=== PATIENT | female | born 1960 | race Hispanic/Latino ===

== ENCOUNTER 2020-05-26 20:13 | Emergency (ER) | payer MEDICARE, OTHER ==
[~2020-05-26] VITALS: Ht 154.9 cm; Wt 60.8 kg
[2020-05-26] MEDS ORDERED: ONDANSETRON HCL INJ 2MG/ML 2ML 2 MG/ML VIAL IV STA (20:20)
[2020-05-26] MEDS ORDERED: MORPHINE SULFATE INJ 4 MG/ML INJ 1ML IV STA (20:20)
--- NOTE | 2020-05-26 20:22 | Emergency Department Note ---
History of Present Illnes History of Present Illness Chief Complaint: chest pain History of Present Illness This is a 59 year old female brought by EMS for evaluation of non radiating CP . Historian: Patient, Medical Record Arrival Mode: [place] [employer] Paralegal Required: No Onset (how long ago): day(s) (1) Radiation: Reports non-radiation Severity: moderate Onset quality: gradual Duration (how long): day(s) (1) Timing of current episode: constant Progression: worsening Relieving factors: none Exacerbating factors: none Associated symptoms: Reports chest pain, Reports nausea/vomiting, Reports shortness of breath Treatments prior to arrival: none Past Medical/Family History Physician Review I have reviewed the patient's past medical and family history. Any updates have been documented here. Past Medical History Recent Fever: No Clinical Suspicion of Infectio: No New/Unexplained Change in Ment: No Past Medical History: COPD, Other Mental Illness Other Medical History: arthritis fibromyalgia ibs Past Surgical History: None Social History Smoking Cessation: Never Smoker Alcohol Use: None Any Illegal Drug Use: No Other Last Tetanus: u Review of Systems Review of Systems Constitutional: Reports no symptoms EENTM: Reports no symptoms Cardiovascular: Reports chest pain Respiratory: Reports dyspnea Gastrointestinal: Reports nausea Genitourinary: Reports no symptoms Musculoskeletal: Reports no symptoms Integumentary: Reports no symptoms Neurological: Reports no symptoms Psychological: Reports no symptoms Endocrine: Reports no symptoms Hematological/Lymphatic: Reports no symptoms Physical Exam Related Data Allergies: Coded Allergies: celecoxib (Verified Allergy, Intermediate, 05/26/20) Triage Vital Signs Vital Signs Date Time Temp Pulse Resp B/P (MAP) Pulse Ox O2 Delivery O2 Flow Rate FiO2 05/26/20 20:13 99.3 83 20 139/72 100 Room Air Vital signs reviewed: Yes Physical Exam CONSTITUTIONAL Constitutional: Present distressed, Present ill appearing HENT HENT: Present normocephalic, Present atraumatic, Present oropharynx clear/moist, Present nose normal HENT L/R: Present left ext ear normal, Present right ext ear normal EYES Eyes: Reports PERRL, Reports conjunctivae normal NECK Neck: Present ROM normal PULMONARY Pulmonary: Present other (tachypnea) CARDIOVASCULAR Cardiovascular: Present regular rhythm, Present heart sounds normal, Present capillary refill normal, Present normal rate GASTROINTESTINAL Abdominal: Present soft, Present nontender, Present bowel sounds normal GENITOURINARY Genitourinary: Present exam deferred SKIN Skin: Present warm, Present dry MUSCULOSKELETAL Musculoskeletal: Present ROM normal NEUROLOGICAL Neurological: Present alert, Present oriented x 3, Present no gross motor or sensory deficits PSYCHOLOGICAL Psychological: Present mood/affect normal, Present judgement normal Results Laboratory Result Diagram: 05/26/20203505/26/202035 Lab results reviewed: Yes Imaging Imaging results reviewed: Yes Impressions [place] [id number] Patient Name: MADISON ARREOLA MR #: [id number] : 1960 Age/Sex: 59/F Req #: [id number] Adm Physician: Ordered by: RONI SHER DO Report #: [id number] Location: ER Room/Bed: Procedure: [id number] CT/CT CHEST W Exam Date: 05/26/20 Exam Time: 2223 REPORT STATUS: Signed EXAM: CT Chest WITH contrast 05/26/2020 10:24 PM INDICATION: Dyspnea COMPARISON: None TECHNIQUE: Chest was scanned utilizing a multidetector helical scanner from the lung apex through the level of the adrenal glands with administration of IV contrast. Coronal and sagittal reformations were obtained. Routine protocol was performed. IV CONTRAST: 100 mL of Omnipaque 300 COMPLICATIONS: None RADIATION DOSE: Total DLP: 519.87 mGy*cm Estimated effective dose: (DLP x 0.014 x size factor) mSv CTDIvol has been reviewed. It is below the limits set by the Radiation Protocol Committee (RPC). Dose modulation, iterative reconstruction, and/or weight based adjustment of the mA/kV was utilized to reduce the radiation dose to as low as reasonably achievable. FINDINGS: LINES/ TUBES: None. LUNGS AND AIRWAYS: The lungs are unremarkable. Airways are normal. PLEURA: The pleural spaces are clear. HEART AND MEDIASTINUM: The thyroid gland is normal. No mediastinal, hilar or axillary lymphadenopathy. The heart is normal in size. There is no pericardial effusion. UPPER ABDOMEN: Innumerable subcentimeter hypodensities are seen throughout the liver that are too small to characterize. Splenic granulomas. Cholecystectomy. BONES: The visualized bony thorax is within normal limits. SOFT TISSUES: Unremarkable. IMPRESSION: 1. No acute intrathoracic process. 2. Innumerable subcentimeter hypodensities throughout the liver are too small to characterize. If no history of malignancy, these possibly represent tiny cysts. Consider correlation with outside imaging to determine stability. If no outside imaging is available for comparison, consider nonemergent outpatient liver protocol MRI. Signed by: Anuradha Pat MD on 05/26/2020 11:46 PM Dictated By: ANURADHA PAT MD 45 Transcribed By: TONIO on 05/26/202345 COPY TO: RONI SHER DO~ Procedures 12 Lead ECG Interpretation ECG Interpretation : ECG: ECG 1 Commercial Litigation Paralegal: Interpreted by ED physician Date: May 26, 2020 Time: 20:33 Prior ECG tracings: reviewed Rhythm: sinus rhythm Rate: normal BPM: 82 QRS axis: normal ST segments normal: Yes T waves normal: Yes Clinical Impression: normal ECG Assessment & Plan Medical Decision Making MDM 59 yom presents with chest pain. CMP, CBC, EKG, and cardiac enzymes ordered for consideration of ACS, PE, costocondritis, Chest wall pain, pneumonia and pneumothorax considered. labs, imaging and EKG reviewed Assessment & Plan Final Impression: (1) Chest pain Depart Disposition: HOME, SELF-CARE Last Vital Signs Date Time Temp Pulse Resp B/P (MAP) Pulse Ox O2 Delivery O2 Flow Rate FiO2 05/27/20 00:55 100 05/26/20 22:30 98.8 82 18 122/85 Room Air Medications in the ED Morphine Sulfate 4 mg ONCE STAT IV Last administered on 05/26/20at 23:50; Admin Dose 4 MG; Start 05/26/20 at 20:20; Stop 05/27/20 at 01:01; Status DC Ondansetron HCl 4 mg ONCE STAT IV Last administered on 05/26/20at 23:50; Admin Dose 4 MG; Start 8/24/20 at 20:20; Stop 05/27/20 at 01:01; Status DC Aspirin 81 mg PRN ONCE PO ; Start 05/26/20 at 20:30; Stop 05/27/20 at 01:01; Status DC Sodium Chloride 50 ml @ ud STK-MED ONCE .ROUTE ; Start 05/26/20 at 22:16; Stop 05/26/20 at 22:10; Status DC Iopamidol 74,000 mg STK-MED ONCE INJ ; Start 05/26/20 at 22:16; Stop 05/26/20 at 22:10; Status DC Procedures 12 Lead ECG Interpretation Commercial Litigation Paralegal: Interpreted by ED physician Date: May 27, 2020 Time: 00:09 Prior [employer]ER tracings: reviewed Rhythm: sinus rhythm Rate: normal BMP: 77 QRS axis: normal ST Segments Normal: Yes Clinical Impression: normal ECG RONI SHER DO May 26, 2020 20:22
[2020-05-26] MEDS ORDERED: ASPIRIN 81 MG CHEW TAB PO ONE (20:30)
[2020-05-26 20:50] LABS: BASOPHILS % 0.2 % (0.0-1.0); HEMATOCRIT 34.7 % (34.2-44.1); HEMOGLOBIN 11.2 g/dL (12.0-16.0); LYMPHOCYTES # (AUTO) 2.1 (1.0-3.2); LYMPHOCYTES % 39.5 % (18.0-39.1); MEAN CORPUSCULAR HEMOGLOBIN 28.9 pg (28-32); MEAN CORPUSCULAR HGB CONC 32.3 g/dL (31-35); MEAN CORPUSCULAR VOLUME 89.4 fL (81-99); MONOCYTES # (AUTO) 0.7 (0.2-0.8); MONOCYTES % 12.2 % (4.4-11.3); NEUTROPHILS # (AUTO) 2.5 (2.1-6.9); NEUTROPHILS % 47.5 % (38.7-80.0); PLATELET COUNT 445 x10e3/uL (140-360); RED BLOOD COUNT 3.88 x10e6/uL (3.6-5.1); RED CELL DISTRIBUTION WIDTH 13.3 % (11.7-14.4)
[2020-05-26 21:09] LABS: ALANINE AMINOTRANSFERASE 38 IU/L (0-55); ALBUMIN 3.9 g/dL (3.5-5.0); ALBUMIN/GLOBULIN RATIO 1.1 (0.8-2.0); ALKALINE PHOSPHATASE 98 IU/L (40-150); ANION GAP 15.9 mmol/L (8-16); BLOOD UREA NITROGEN 14 mg/dL (7-26); BUN/CREATININE RATIO 17 (6-25); CALCIUM 9.4 mg/dL (8.4-10.2); CARBON DIOXIDE 21 mmol/L (22-29); CHLORIDE 109 mmol/L (98-107); CREATINE KINASE 205 IU/L (29-168); CREATININE, SERUM 0.83 mg/dL (0.57-1.11); EST GLOMERULAR FILTRATION RATE > 60 ML/MIN (60-); GLUCOSE 96 mg/dL (74-118); POTASSIUM 3.9 mmol/L (3.5-5.1); SODIUM 142 mmol/L (136-145)
[2020-05-26] MEDS ORDERED: SODIUM CHLORIDE 0.9% 50ML 50 ML ONE (22:16)
[2020-05-26] MEDS ORDERED: IOPAMIDOL 370 MG/ML 200 ML INFUS..BTL INJ ONE (22:16)
--- OUTSIDE RECORDS SUMMARY | 2020-05-26 23:13 | XMS REPORT | Continuity of Care Document ---
Author Author [facility] t Organization [facility] Address [address] [place] [address] Phone Unavailable Care Team Providers Care Returned Goods Inspector Name Role Phone NONSTAFF PCP Unavailable CHACORTA ODELL M.D. Attphys Unavailable COLE YE M.D. Attphys Unavailable PAUL MILLER M.D. Attphys Unavailable EMMY KRISHNAMURTHY Attphys Unavailable Payers Payer Name Policy Type Policy Number Effective Date Expiration Date S ource Problems Condition Name Condition Details Condition Category Status Onset Date Resolution Date Last Treatment Date Treating Clinician Comments Source Pain Pain Problem Active [facility] Pelvic pain in female Pelvic pain in female Problem Active [facility] Urge incontinence of urine Urge incontinence of urine Problem Active [facility] Urinary tract infection Urinary tract infection Problem Active [facility] Need for prophylaxis against urinary tract infection N eed for prophylaxis against urinary tract infection Problem Active [facility] Urinary urgency Urinary urgency Problem Active [facility] Recurrent UTI Recurrent UTI Problem Active [facility] Left leg numbness Left leg numbness Problem Active [facility] Postmenopausal atrophic vaginitis Postmenopausal atrophic vagini tis Problem Active [facility] History of kidney infection History of kidney infection Problem Resolved [facility] History of recurrent UTI (urinary tract infection) His tory of recurrent UTI (urinary tract infection) Problem Resolved [facility] Visual hallucination Visual hallucination Problem Active [facility] Auditory hallucinations Auditory hallucinations Problem Active [facility] Memory loss Memory loss Problem Active [facility] Allergies, Adverse Reactions, Alerts Allergy Name Allergy Type Status Severity Reaction(s) Onset Date Inacti ve Date Treating Clinician Comments Source codeine DA Active U 2020-02-29 00:00:00 [facility] tramadol DA Active U 2020-02-29 00:00:00 [facility] hydrocodone DA Active U 2018-08-08 00:00:00 [facility] oxycodone DA Active MO 2015-04-14 00:00:00 [facility] acetaminophen DA Active MO 2015-04-14 00:00:00 [facility] tramadol DA Active MO 2015-04-14 00:00:00 [facility] celecoxib DA Active SV 2015-04-14 00:00:00 [facility] CeleBREX CAPS drug allergy Active Rash [facility] Myrbetriq TB24 drug allergy Active Headache [facility] Percocet TABS drug allergy Active Vomiting, Dizziness [facility] tramadol drug allergy [facility] Vicodin TABS drug allergy Active [facility] Family History Family Member Diagnosis Comments Start Date Stop Date Source Mother Family history of cardiac disorder [facility] Mother Family history of cerebrovascular accident [facility] Social History Smoking Status Start Date Stop Date Source Never smoker [facility] Medications Ordered Medication Name Filled Medication Name Start Date Stop Da te Current Medication? Ordering Clinician Indication Dosage Frequency Signature (SIG) Comments Components Source Estrace 0.1 MG/GM Vaginal Cream Estrace 0.1 MG/GM Vaginal Cr [facility] 2015-12-10 00:00:00 Yes JUAN BARRETT M.DHannah INSERT 1 GRAM INTRAVAGINALLY AT BEDTIME 2 TIMES A WEEK. FOR EXAMPLE ON TUESDAYS AND THURSDAYS. [facility] Alendronate Sodium 70 MG Oral Tablet Alendronate Sodium 70 MG Oral Tablet Yes [facility] Pantoprazole Sodium 40 MG Oral Tablet Delayed Release Pantoprazole Sodium 40 MG Oral Tablet Delayed Release Yes [facility] Simvastatin 40 MG Oral Tablet Simvastatin 40 MG Oral Tablet Ye s [facility] Effexor TABS Effexor TABS Yes [facility] Amitriptyline HCl - 50 MG Oral Tablet Amitriptyline HCl - 50 MG Ora l Tablet Yes [facility] Lyrica 50 MG Oral Capsule Lyrica 50 MG Oral Capsule Yes [facility] clonazePAM 2 MG Oral Tablet clonazePAM 2 MG Oral Tablet Yes [facility] Vital Signs Vital Name Observation Time Observation Value Comments Source BP Systolic 2018-12-11 14:47:00 114 mm[Hg] Location: [place] Positi on: Sitting [facility] BP Diastolic 2018-12-11 14:47:00 76 mm[Hg] Location: [place] Positi on: Sitting [facility] Weight 2018-12-11 14:47:00 129 [lb_av] [facility] Body Mass Index Calculated 2018-12-11 14:47:00 24.37 kg/m2 [facility] Height 2018-12-11 14:47:00 61 [in_us] [facility] Heart Rate 2018-12-11 14:47:00 92 /min [facility] BP Systolic 2018-11-07 11:06:00 112 mm[Hg] Location: MER[place]; Positi on: Sitting [facility] BP Diastolic 2018-11-07 11:06:00 77 mm[Hg] Location: LIANA Positi on: Sitting [facility] Height 2018-11-07 11:06:00 61 [in_us] [facility] Weight 2018-11-07 11:06:00 133.125 [lb_av] [facility] Body Mass Index Calculated 2018-11-07 11:06:00 25.15 kg/m2 [facility] Heart Rate 2018-11-07 11:06:00 98 /min [facility] BP Systolic 2018-08-16 14:34:00 105 mm[Hg] [facility] BP Diastolic 2018-08-16 14:34:00 69 mm[Hg] [facility] Height 2018-08-16 14:34:00 61 [in_us] [facility] Weight 2018-08-16 14:34:00 119 [lb_av] [facility] Body Mass Index Calculated 2018-08-16 14:34:00 22.48 kg/m2 [facility] Heart Rate 2018-08-16 14:34:00 82 /min [facility] Respiration Rate 2018-08-16 14:34:00 14 /min [facility] Procedures Procedure Date / Time Performed Performing Clinician Sour e PET [place] Dementia [id number] 2018-11-14 00:00:00 [facility] PET CT Dementia [id number] 2018-11-07 00:00:00 [facility] Brain YVONNE Scan 2018-08-16 00:00:00 [facility] of Back surgery [facility] History of Shoulder surgery [facility] Encounters Start Date/Time End Date/Time Encounter Type Admission Type Attendi [facility] Care Department Encounter ID Source 2019-10-18 11:45:00 2019-10-18 13:00:00 Departed Emergency Room [facility] [id number] [facility] 2019-10-16 09:05:00 2019-10-16 09:05:00 Outpatient MH MED [id number] [facility] 2018-12-11 14:30:00 2018-12-11 14:30:00 Appointment; CHACORTA ODELL M.D. HUNTER, DAVID, M.D. [facility] Neurology [id number] [facility] 2018-11-07 11:30:00 2018-11-07 11:30:00 Appointment; CHACORTA ODELL M.D. HUNTER, DAVID, M.D. [facility] Neurology [id number] [facility] 2018-11-07 09:00:00 2018-11-07 09:00:00 Appointment; COLE YE M.D. SCHULZ, PAUL, M.D. [facility] Neurology [id number] [facility] 2018-08-16 15:00:00 2018-08-16 15:00:00 Appointment; PAUL MILLER M.D. MEHANNA, RAJA, M.D. [facility] Neurology [id number] [facility] 2018-03-15 10:45:00 2018-03-15 10:45:00 Appointment; DIAMOND KRISHNAMURTHY MARIANNE [facility] [id number] [facility] 2017-09-19 10:30:00 2017-09-19 10:30:00 Appointment; DIAMOND KRISHNAMURTHY MARIANNE UTP UTP [id number] [facility] 2017-06-17 14:30:00 2017-06-17 14:30:00 Appointment; DIAMOND KRISHNAMURTHY MARIANNE UTP UTP [id number] [facility] 2017-02-15 15:30:00 2017-02-15 15:30:00 Appointment; DIAMOND KRISHNAMURTHY MARIANNE [facility] UTP [id number] [facility] 2017-02-02 16:45:00 2017-02-02 16:45:00 Appointment; DIAMOND KRISHNAMURTHY MARIANNE [facility] UTP [id number] [facility] 2017-01-05 10:30:00 2017-01-05 10:30:00 Appointment; DIAMOND KRISHNAMURTHY MARIANNE [facility] UTP [id number] [facility] Results Test Description Test Time Test Comments Results Result Comments Source Novel Coronavirus 2019 nCoV 2020-02-23 21:40:00 Test Item Novel Coronavirus 2019 nCoV (test code = COVID19) Negative Nega tive Does patient have the clinical criteria consistent with COVID-19? YIs the patien t going to be discharged home? [id number] 12:31:00* Test Item Value Reference Range Interpretation Comments D-DIMER (test code = DDIMER) < 100 ng/ml < 600 BASIC METABOLIC [id number] 12:31:00* Test Item Value Reference Range Interpretation Comments SODIUM (test code = NA) 143 mmol/L 136-145 N POTASSIUM (test code = K) 3.7 mmol/L 3.5-5.1 N CHLORIDE (test code = CL) 105 mmol/L 101-109 N CARBON DIOXIDE (test code = CO2) 27.4 mmol/L 21-32 N ANION GAP (test code = GAP) 14 mmol/L 10-20 N GLUCOSE (test code = GLU) 98 mg/dL 74-106 N BLOOD UREA NITROGEN (test code = BUN) 5 mg/dL 3-21 N GLOMERULAR FILTRATION RATE (test code = GFR) 56 mL/min >=60 Estimated GFR by using Modified MDRD formula.Chronic kidney disease is defined as either kidney damageor GFR <60 mL/min/1.73 m2 for >3 months. CREATININE (test code = CREAT) 1.02 mg/dL 0.55-1.3 N BUN/CREATININE RATIO (test code = BUN/CREA) 4.9 10-20 L CALCIUM (test code = CA) 8.1 mg/dL 8.4-10.2 L HEPATIC FUNCTION [id number] 12:31:00* Test Item Value Reference Range Interpretation Comments TOTAL PROTEIN (test code = PROT) 7.3 g/dL 6.5-8.4 N ALBUMIN (test code = ALB) 3.7 g/dL 3.4-4.8 N GLOBULIN (test code = GLOB) 3.6 G/DL 1-10 N ALBUMIN/GLOBULIN RATIO (test code = A/G) 1.03 RATIO 0.75-1.50 N BILIRUBIN TOTAL (test code = BILT) 0.40 mg/dL 0.0-1.0 N BILIRUBIN DIRECT (test code = BILD) 0.10 mg/dL 0.0-0.30 N SGOT/AST (test code = AST) 46 U/L 6-32 H SGPT/ALT (test code = ALT) 35 U/L 12-78 N N ote: Change in REFERENCE RANGE due to new reagent method. ALKALINE PHOSPHATASE TOTAL (test code = ALKP) 122 U/L 38-126 N [id number] 12:31:00* Test Item Value Reference Range Interpretation Comments TROPONIN-I (test code = TROPI) <0.015 ng/mL 0.00-0.056 N B-TYPE NATRIURETIC [id number] 12:30:00* Test Item Value Reference Range Interpretation Comments B-TYPE NATRIURETIC PEPTIDE (test code = BNP) 10.6 pg/mL 0-100 N BASIC METABOLIC [id number] 12:23:00* Test Item Value Reference Range Interpretation Comments SODIUM (test code = NA) 143 mmol/L 136-145 N POTASSIUM (test code = K) 3.7 mmol/L 3.5-5.1 N CHLORIDE (test code = CL) 105 mmol/L 101-109 N CARBON DIOXIDE (test code = CO2) 27.4 mmol/L 21-32 N ANION GAP (test code = GAP) 14 mmol/L 10-20 N GLUCOSE (test code = GLU) 98 mg/dL 74-106 N BLOOD UREA NITROGEN (test code = BUN) 5 mg/dL 3-21 N GLOMERULAR FILTRATION RATE (test code = GFR) 56 mL/min >=60 Estimated GFR by using Modified MDRD formula.Chronic kidney disease is defined as either kidney damageor GFR <60 mL/min/1.73 m2 for >3 months. CREATININE (test code = CREAT) 1.02 mg/dL 0.55-1.3 N BUN/CREATININE RATIO (test code = BUN/CREA) 4.9 10-20 L CALCIUM (test code = CA) 8.1 mg/dL 8.4-10.2 L HEPATIC FUNCTION [id number] 12:23:00* Test Item Value Reference Range Interpretation Comments TOTAL PROTEIN (test code = PROT) gram/dL 6.4-8.2 ALBUMIN (test code = ALB) g/dL 3.4-5.0 GLOBULIN (test code = GLOB) g/dL 2.7-4.2 ALBUMIN/GLOBULIN RATIO (test code = A/G) 0.75-1.50 BILIRUBIN TOTAL (test code = BILT) mg/dL 0.2-1.2 BILIRUBIN DIRECT (test code = BILD) mg/dL 0.0-0.20 SGOT/AST (test code = AST) IUnit/L 15-37 SGPT/ALT (test code = ALT) U/L 10-69 ALKALINE PHOSPHATASE TOTAL (test code = ALKP) IUnit/L 45-117 [id number] 12:23:00* Test Item Value Reference Range Interpretation Comments TROPONIN-I (test code = TROPI) ng/mL 0-0.045 CBC W/O [id number] 12:17:00* Test Item Value Reference Range Interpretation Comments WHITE BLOOD CELL (test code = WBC) 5.1 K/mm3 4.5-12.5 N RED BLOOD CELL (test code = RBC) 4.12 mill/mm3 3.7-5.2 N HEMOGLOBIN (test code = HGB) 12.5 gram/dL 11.5-15.5 N HEMATOCRIT (test code = HCT) 37.6 % 36.0-46.0 N MEAN CELL VOLUME (test code = MCV) 91.3 fL 80-98 N MEAN CELL HGB (test code = MCH) 30.3 picogram 27.0-33.0 N MEAN CELL HGB CONCETRATION (test code = MCHC) 33.2 gram/dL 33.0-36. 0 N RED CELL DISTRIBUTION WIDTH (test code = RDW) 12.7 % 11.6-16. 2 N RED CELL DISTRIBUTION WIDTH SD (test code = RDW-SD) 43.2 fL 37 .0-51.0 N PLATELET COUNT (test code = PLT) 375 K/mm3 150-450 N MEAN PLATELET VOLUME (test code = MPV) 8.5 fL 6.7-11.0 N - XR CHEST 1 [id number] 11:46:00 Name: MADISON ARREOLA [facility] : 1960 Age/S:59 /F [address] [facility] Unit#:[id number] Loc: [place] [address] Phys: Tung Grider MD Dis Date: PHONE #: [phone] Status: PRE ER FAX #: [phone] Exam Date: 02/21/2020 Reason: Shortness of Breath EXAMS: CPT CODE: [id number] XR CHEST 1 V 30498 HISTORY: Shortness of breath. COMPARISON: August 10, 2018. Location: [facility]. No acute infiltrates, effusion or congestion is noted. Vague right paratracheal soft tissue is stable from August 2018. The cardiac and mediastinal silhouette are within normal limits. IMPRESSION: No acute infiltrates, effusion or congestion. at 1146 Reported and signed by: Kris Sanders M.D. CC: Nitin Wang MD; Tung Grider MD Technologist: Jaclyn Montes Trnscrpt Data: 02/21/2020 (1146) [email or web address] Orig Print D/T: S: 02/21/2020 (8448) PAGE 1 Signed Report - CT ABD PELVIS W WO [id number] 12:09:00 Name: MADISON ARREOLA [facility] : 1960 Age/S: 58 / F [address] Unit #: [id number] Loc: [place] [address] Phys: William Hernández MD Acct: [id number] Dis Date: Status: REG CLI PHONE #: [phone] Exam Date: 07/10/2019 1102 FAX #: [phone] Reason: OTHER SPECIFIED DISEASE OF GALLBLADDER EXAMS: CPT CODE: [id number] CT ABD PELVIS W WO CONT 50324 HISTORY: Other specified disease of the gallbladder. COMPARISON: None available. CT abdomen and pelvis with and without contrast: Automated exposure control. CT of abdomen: The lung bases are clear. Bullous changes on the left. Dependent changes. The liver is enhancing homogeneously. Punctate too numerous to count 1 to 2 mm low attenuation lesions. These are difficulty to assess due to the small size. No other lesions. Portal vein and hepatic artery are patent. Patient is post cholecystectomy. The liver measured 12 cm in length. Unremarkable spleen with granulomatous calcifications. The stomach distended incompletely but it is normal. Pancreas enhances homogeneously. Unremarkable adrenals. Kidneys are free from hydroureteronephrosis. Homogeneous enhancement. Bilateral excretion. No pathologic adenopathy. Well-opacified abdominal and pelvic vasculature. No bowel obstruction or colitis or diverticulitis or enteritis. Constipation. Mo derate amount of fecal material. CT PELVIS: Appendix is not visible but no inflammatory changes are noted. No bowel obstructio n or colitis or diverticulitis or enteritis. Unremarkable uterus. Decompressed urinary bladder is limited. No pelvic pathologic adenopathy. No free fluid or free air or abscess. Subcutaneous tissues and the musculature are normal in appearance. No lytic or blastic lesions are not ed within the bony skeleton. Mild enlargement of the left S2 foramina. No obvious soft tissue mass noted. DJD. PAGE 1 Signed Report (CONTINUED) Name: MADISON ARREOLA [facility] : 1960 Age/S: 58 / F [address] Unit #: [id number] Loc: [place] [address] Phys: William Hernández MD Acct: [id number] Dis Date: Status: REG CLI PHONE #: [phone] Exam Date: 05/2019 1102 FAX #: [phone] Reason: OTHER SPECIFI ED DISEASE OF GALLBLADDER EXAMS: CPT CODE: [id number] CT ABD PELVIS W WO CONT 95043 <Continued> IMPRESSION: Patient is post cholecystectomy. Punctate subcentimeter 1 to 2 mm innumerable low-attenuation lesions are too small to characterize. No other lesions within the liver. The liver is not enlarged. No architectural distortion. Appendix is not visible but no inflammatory changes are noted. No bowel obstruction or colitis or diverticulitis or enteritis. Constipation. No hydroureteronephrosis with homogeneous enhancement and excretion. at 1209 Reported and signed by: Kris Sanders M.D. CC: William Hernández; Nitin Wang MD Technologist:Ata Rivera RT(R),(MR),(CT) CTDI: DLP: Trnscb Date/Time: 07/10/2019 (1209) [email or web address] Orig Print D/T: S: 07/10/2019 (6134) PAGE 2 Signed Report - US ABDOMEN [id number] 11:20:00 Name: MADISON ARREOLA [facility] : 1960 Age/S: 58 / F [address] [facility] Unit #: [id number] Loc: [place] [address] Phys: William Hernández MD Acct: [id number] Dis Date: Status: REG CLI PHONE #: [phone] Exam Date: 11/24/2018 1050 FAX #: [phone] Reason: K29.00,K21.0,K44.9 EXAMS: CPT CODE: [id number] US ABDOMEN LTD 72595 HISTORY: Abdominal pain and gastritis. COMPARISON: HIDA scan from same day. The liver is slightly heterogeneous both in echogenicity and texture suggesting mild fibrofatty infiltration which slightly limits evaluation for hepatic mass however no discrete lesions. The liver measured 14.4 cm in length. No intra or extrahepatic biliary ductal dilatation. CBD is normal at 4.3 mm. Main portal vein is patent with hepatopedal flow with normal spectral waveform. Gallbladder is without gallstones. No pericholecystic fluid or wall thickening. No ascites. Right kidney is free from hydronephrosis and calyceal stones. Normal echogenicity and texture. Right kidney measured 8.3 cm in length. Visualized portions of the IVC, aorta and pancreas are normal however imaged incompletely. IMPRESSION: No gallstones. Mild fibrofatty infiltration of the liver. Normal right kidney. at 1120 Reported and signed by: Kris Sanders M.D. CC: William Hernández; Nitin Wang MD Technologist: RICHARD SALGADO RT(R),[facility] Date/Time: 11/24/2018 (1120) [email or web address] Orig Print D/T: S: 11/24/2018 (1123) Probe: PAGE 1 Signed Report - HEPA IMAG INCL GB W [id number] 11:18:00 FAX: William Felton MD [phone] [place]: St: REG FAX: Nitin Malik [phone] Name: MADISON ARREOLA [facility] : 1960 Age/S: 58/F [address] [facility] Unit #: [id number] Loc: [place] [address] Phys: William Hernández MD Acct: [id number] Dis Date: Status: REG CLI PHONE #: [phone] Exam Date: 11/24/2018 1055 FAX #: [phone] Reason: K29.00.K44.9,K21.0 EXAMS: CPT CODE: [id number] HEPA IMAG INCL GB W PHA 69536 HISTORY: Acute gastritis. COMPARISON: None available. HIDA scan: 5.5 mCi of technetium 99m Choletec and 1 mcg of CCK. Sequential images obtained. Homogeneous uptake within the liver. Excretion into the biliary system as well as into the gallbladder and small bowel. Ejection fraction is calculated to 8% at 22 1/2 mi nutes. The normal should be greater than 35% IMPRESSION: Depressed ejection fraction 8% at 22 1/2 minutes may suggest ch ronic gallbladder dysmotility and/or biliary dyskinesia. Jerica ctronically Signed by Sherly Sanders on 11/24/2018 at 1118 Reported and signed by: Kris Sanders M.D. 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 Patientcomplaining of memory loss since past one year.COMPARISON: None.TECHNIQUE:After intravenous administration of 5.2 mCi of I-123 Ioflupane, delayed SPECTimages of the head were obtained at 4 hours post injection.FINDINGS:Right striatum:There is normal tracer uptake in the right putamen with a Z score of -1.13 (Zscores represent standard deviation from normal age match population and aresignificant if less than -1.6).Normal tracer uptake in the right caudate with a Z score of -0.95.The right striatum contributes 52% of the remaining dopamine transporterfunction with a Z score of -1.09 .Left striatum:There is normal tracer uptake in the left putamen with a Z score of -1.18.Tracer uptake is normal in the left caudate with a Z score of - 1.2.The left striatum contributes 48% of the remaining dopamine transporterfu nction with a Z score of -1.22 .The remainder of tracer distribution in backgrou nd brain parenchyma is withinnormal limits.IMPRESSION:Normal Yvonne scan.--This rep ort was dictated by a Auto Service Writer/Fellow/Physician [employer] Developer. Eun forresterreviewed the images as well as the interpretation and agree with the findin gs.Read by: William Kam MD Resident/Fellow/PhysicianAssis tant: William Kam MDDictated Date/time: 09/12/18 13:55Electronically Signed by: Zoey Bruno MD 09/12/1817:05FINAL REPORT [facility]
--- NOTE | 2020-05-26 23:49 | Diagnostic Imaging Report ---
EXAM: CT Chest WITH contrast 05/26/2020 10:24 PM INDICATION: Dyspnea COMPARISON: None TECHNIQUE: Chest was scanned utilizing a multidetector helical scanner from the lung apex through the level of the adrenal glands with administration of IV contrast. Coronal and sagittal reformations were obtained. Routine protocol was performed. IV CONTRAST: 100 mL of Omnipaque 300 COMPLICATIONS: None RADIATION DOSE: Total DLP: 519.87 mGy*cm Estimated effective dose: (DLP x 0.014 x size factor) mSv CTDIvol has been reviewed. It is below the limits set by the Radiation Protocol Committee (RPC). Dose modulation, iterative reconstruction, and/or weight based adjustment of the mA/kV was utilized to reduce the radiation dose to as low as reasonably achievable. FINDINGS: LINES/ TUBES: None. LUNGS AND AIRWAYS: The lungs are unremarkable. Airways are normal. PLEURA: The pleural spaces are clear. HEART AND MEDIASTINUM: The thyroid gland is normal. No mediastinal, hilar or axillary lymphadenopathy. The heart is normal in size. There is no pericardial effusion. UPPER ABDOMEN: Innumerable subcentimeter hypodensities are seen throughout the liver that are too small to characterize. Splenic granulomas. Cholecystectomy. BONES: The visualized bony thorax is within normal limits. SOFT TISSUES: Unremarkable. IMPRESSION: 1. No acute intrathoracic process. 2. Innumerable subcentimeter hypodensities throughout the liver are too small to characterize. If no history of malignancy, these possibly represent tiny cysts. Consider correlation with outside imaging to determine stability. If no outside imaging is available for comparison, consider nonemergent outpatient liver protocol MRI. Signed by: Shola Gama MD on 05/26/2020 11:46 PM
[2020-05-27 01:05] LABS: CREATINE KINASE MB 2.3 ng/mL (0-5.0)
== END 2020-05-27 01:01 | disposition home or self-care (01) ==
LOC: ER 20:22
DX: R07.9 Chest pain, unspecified (principal); R11.2 Nausea with vomiting, unspecified; R06.02 Shortness of breath; J44.9 Chronic obstructive pulmonary disease, unspecified; M79.7 Fibromyalgia
CPT/HCPCS: 36415; 71260; 80053; 82550; 82553; 83880; 84484; 85025; 93005; 99284; J2270; J2405; Q9967

== ENCOUNTER → 2020-07-09 | Outpatient (CLI) | payer MEDICARE, OTHER ==
[~2020-07-09] MED LIST: ACETAMINOPHEN 325 MG/10 ML UDC ONE; ALBUTEROL0.63 MG/3 NEB; AZELASTINE137 MCG/0.; BUSPIRONE HCL5 MG PO; CRANBERRY300 MG PO; DULCOLAX5 MG PO; GABAPENTIN400 MG PO; HYDROXYZINE HCL25 MG PO; IOPAMIDOL 370 MG/ML 200 ML INFUS..BTL INJ ONE; LOSARTAN POTASS25 MG PO; METOPROLOL TARTRATE 25 MG TAB ONE; METOPROLOL TARTRATE INJ 1 MG/ML VIAL ONE; NITROGLYCERIN 0.4 MG SUBL ONE; PANTOPRAZOLE SO40 MG PO; PROVENTIL HFA6.7 GM INH; SODIUM CHLORIDE 0.9% 100 ML ONE; SYMBICORT 16010.2 GM INH; TRAZODONE HCL50 MG PO; TYLENOL # 31 EA PO; VENLAFAXINE HCL75 MG PO
[2020-07-09 08:09] LABS: BLOOD UREA NITROGEN 10 mg/dL (7-26); CREATININE, SERUM 0.84 mg/dL (0.57-1.11)
[2020-07-09 08:36] LABS: BUN/CREATININE RATIO 12 (6-25)
[2020-07-09 08:39] LABS: EST GLOMERULAR FILTRATION RATE > 60 ML/MIN (60-)
--- NOTE | 2020-07-10 10:18 | Diagnostic Imaging Report ---
EXAM: CALCIUM SCORE AND CORONARY CTA INDICATION: ^[id number] ^[id number] ^[facility] COMPARISON: CT chest 05/26/2020 TECHNIQUE: Multi-detector CT technology was employed (64 MDCT [employer]). Minimal slice thickness with retrospective gating was performed following the intravenous administration of contrast material. The patient was premedicated with 50 mg by mouth and 10 mg i.v. metoprolol and 0.4 mg sublingual nitroglycerin for heart rate control and coronary dilation, respectively. IV CONTRAST: 100 mL of Isovue-370 ORAL CONTRAST: None COMPLICATIONS: None RADIATION DOSE: Total DLP: 1395 mGy*cm Estimated effective dose: (DLP x 0.015 x size factor) mSv CTDIvol has been reviewed. It is below the limits set by the Radiation Protocol Committee (RPC). For optimization of anatomic evaluation, multiplanar reconstruction, maximum intensity projections, and advanced 3-D off-line postprocessing were performed on a dedicated stand-alone workstation under the direct supervision of the interpreting physician. QUALITY: Excellent FINDINGS: CALCIUM SCORE: The observed Agatston Calcium Score of 0 is at percentile 25% for subjects of the same age and gender who are free of clinical cardiovascular disease and treated diabetes. The Agatston score for each vessel is as follows: LM: 0 LAD: 0 LCx: 0 RCA: 0 DISTRIBUTION OF THE CALCIFIED PLAQUES: No identifiable plaque in the coronary arteries. CORONARY ANATOMY: There is normal origin of the coronary arteries. Left Main Coronary Artery: The left main is normal sized vessel that bifurcates into the LAD and circumflex. There is no evidence of atherosclerotic changes or stenotic disease. Left Anterior Descending Coronary Artery: The LAD is a normal size vessel that wraps around the apex. It gives rise to 2 acute diagonal branches. There is no evidence of atherosclerotic changes or stenotic disease. Left Circumflex Coronary Artery: The LCX is a normal size vessel, which is non-dominant. It gives rise to 1 obtuse marginal branches. There is no evidence of atherosclerotic changes or stenotic disease. Right Coronary Artery: The RCA is a normal size vessel, which is dominant. It gives rise to a conus branch, AV teena branch, and 2 acute marginal branches. In its distal segment it bifurcates into the PDA and PV branch. There is no evidence of atherosclerotic changes or stenotic disease. CARDIAC MORPHOLOGY AND FUNCTION: The right and left atria and ventricles are morphologically normal. There is normal resting global left ventricular systolic function. LVEF: 62%, LV end diastolic volume: 75 cc LV end systolic volume: 28 cc LV stroke volume: 46 cc LIMITED CHEST: Limited views of the visualized chest show no abnormality within chest wall and mediastinum. No mediastinal lymphadenopathy. The visualized lungs are clear. The visualized portions of the ascending and descending thoracic aorta are of normal size. Small hiatal hernia. LIMITED ABDOMEN: Limited images of the upper abdomen reveal no abnormalities of the visualized organs. BONES: No acute osseous abnormalities. IMPRESSION: 1. Total Agatston Calcium Score: 0 that corresponds to percentile 25%, representing no identifiable calcified plaques in the coronary arteries. 2. Normal coronary anatomy without evidence of atherosclerotic changes or stenotic disease. CAD-JAZZMINE: 0 Reference: J Cardiovasc Comput Tomogr. Apr-May 2016;10(4):269-81. 3. Small hiatal hernia. Signed by: Dr. Loree Hansen M.D. on 07/10/2020 10:15 AM
== END ==
LOC: CT 07:04
PROVIDERS: ATTEND Internal Medicine Interventional Cardiology
DX: I20.8 Other forms of angina pectoris (principal)
CPT/HCPCS: 36415; 75574; 82565; 84520; J7050; Q9967

== ENCOUNTER → 2020-12-31 | Outpatient (RCR) | payer MEDICARE, OTHER ==
[~2020-12-31] MED LIST changes: -ACETAMINOPHEN 325 MG/10 ML UDC ONE; -IOPAMIDOL 370 MG/ML 200 ML INFUS..BTL INJ ONE; -METOPROLOL TARTRATE 25 MG TAB ONE; -METOPROLOL TARTRATE INJ 1 MG/ML VIAL ONE; -NITROGLYCERIN 0.4 MG SUBL ONE; -SODIUM CHLORIDE 0.9% 100 ML ONE
== END ==
LOC: PT 12-03 09:00
PROVIDERS: ATTEND Specialist
DX: M75.41 Impingement syndrome of right shoulder (principal)

== ENCOUNTER 2021-01-07 10:00 | Outpatient (RCR) | payer MEDICARE, OTHER | END 2021-01-30 | LOC: PT 10:00 | PROVIDERS: ATTEND Specialist | DX: M75.41 Impingement syndrome of right shoulder (principal) ==

== ENCOUNTER → 2021-01-16 | Outpatient (CLI) | payer MEDICARE, OTHER | LOC: MRI 09:30 | PROVIDERS: ATTEND Physician Assistant | DX: M75.41 Impingement syndrome of right shoulder (principal); M25.511 Pain in right shoulder ==

== ENCOUNTER → 2021-03-10 | Day surgery (SDC) | payer MEDICARE, OTHER ==
[2021-03-05 10:53] LABS: BASOPHILS # (AUTO) 0.1 (0.0-0.1); BASOPHILS % 1.2 % (0.0-1.0); EOSINOPHILS # (AUTO) 0.7 (0.0-0.4); EOSINOPHILS % 11.5 % (0.0-6.0); HEMATOCRIT 36.6 % (34.2-44.1); HEMOGLOBIN 12.1 g/dL (12.0-16.0); LYMPHOCYTES # (AUTO) 1.4 (1.0-3.2); LYMPHOCYTES % 24.1 % (18.0-39.1); MEAN CORPUSCULAR HEMOGLOBIN 30.3 pg (28-32); MEAN CORPUSCULAR HGB CONC 33.1 g/dL (31-35); MEAN CORPUSCULAR VOLUME 91.5 fL (81-99); MONOCYTES # (AUTO) 0.7 (0.2-0.8); MONOCYTES % 12.3 % (4.4-11.3); NEUTROPHILS % 50.4 % (38.7-80.0); PLATELET COUNT 355 x10e3/uL (140-360); RED CELL DISTRIBUTION WIDTH 12.8 % (11.7-14.4)
[~2021-03-10] MED LIST changes: +ACETAMINOPHEN 325 MG TAB ONE; +BLACK ELDERBER1 EACH PO; +BUPIVACAINE HCL 0.5% INJ 30 ML VIAL INJ ONE; +CEFAZOLIN SOD 1 GM/NS 50ML 50 ML IV ONE; +DEXAMETHASONE SOD PHOS INJ 4 MG/ML VIAL ONE; +EPHEDRINE SULFATE INJ 50 MG/ML VIAL ONE; +EPINEPHRINE 1 MG/ML 30ML VIAL ONE; +EPINEPHRINE 2.25% INH NEBU SOL 0.5 ML VIAL ONE; +EPINEPHRINE HCL 1:1000 1ML 1 MG/ML AMP ONE; +GLYCOPYRROLATE INJ 0.2 MG/ML VIAL ONE; +LIDOCAINE HCL 2% LOCAL INJ 5 ML SDV VIAL INJ ONE; +MIRALAX17 GM PO; +NEOSTIGMINE 1 MG/ML 10ML VIAL ONE; +ONDANSETRON HCL INJ 2MG/ML 2ML 2 MG/ML VIAL ONE; +POVIDONE IODINE 0.05% 0.05 % ML PO ONE; +PROPOFOL IV EMULSION 10 MG/ML 20 ML VIAL ONE; +ROCURONIUM BROMIDE 10 MG/ML 5ML VIAL IV ONE; +SEVOFLURANE INHAL SOLN 250 ML PEN BTL ONE
[2021-03-10 09:50] VITALS: BP 124/61
== END | disposition home or self-care (01) ==
LOC: OR 06:58
PROVIDERS: ATTEND Specialist
DX: M75.112 Incomplete rotator cuff tear or rupture of left shoulder, not specified as traumatic (principal); J44.9 Chronic obstructive pulmonary disease, unspecified; I10 Essential (primary) hypertension; E78.5 Hyperlipidemia, unspecified; F41.1 Generalized anxiety disorder; M79.7 Fibromyalgia; K21.9 Gastro-esophageal reflux disease without esophagitis; R53.1 Weakness; F03.90 Unspecified dementia, unspecified severity, without behavioral disturbance, psychotic disturbance, mood disturbance, and anxiety; Z88.6 Allergy status to analgesic agent; Z88.8 Allergy status to other drugs, medicaments and biological substances; Z01.810 Encounter for preprocedural cardiovascular examination; Z01.818 Encounter for other preprocedural examination; Z86.16 Personal history of COVID-19; Z87.891 Personal history of nicotine dependence
CPT/HCPCS: 29827; 36415; 71046; 85025; 93005; C1713; J0171; J0690; J1100; J2001; J2405; J2704; J2710

== ENCOUNTER 2021-05-01 11:00 | Outpatient (RCR) | payer MEDICARE, OTHER ==
[~2021-05-01 11:00] MED LIST changes: -ACETAMINOPHEN 325 MG TAB ONE; -BUPIVACAINE HCL 0.5% INJ 30 ML VIAL INJ ONE; -CEFAZOLIN SOD 1 GM/NS 50ML 50 ML IV ONE; -DEXAMETHASONE SOD PHOS INJ 4 MG/ML VIAL ONE; -EPHEDRINE SULFATE INJ 50 MG/ML VIAL ONE; -EPINEPHRINE 1 MG/ML 30ML VIAL ONE; -EPINEPHRINE 2.25% INH NEBU SOL 0.5 ML VIAL ONE; -EPINEPHRINE HCL 1:1000 1ML 1 MG/ML AMP ONE; -GLYCOPYRROLATE INJ 0.2 MG/ML VIAL ONE; -LIDOCAINE HCL 2% LOCAL INJ 5 ML SDV VIAL INJ ONE; -NEOSTIGMINE 1 MG/ML 10ML VIAL ONE; -ONDANSETRON HCL INJ 2MG/ML 2ML 2 MG/ML VIAL ONE; -POVIDONE IODINE 0.05% 0.05 % ML PO ONE; -PROPOFOL IV EMULSION 10 MG/ML 20 ML VIAL ONE; -ROCURONIUM BROMIDE 10 MG/ML 5ML VIAL IV ONE; -SEVOFLURANE INHAL SOLN 250 ML PEN BTL ONE
== END 2021-05-02 ==
LOC: PT 11:00
PROVIDERS: ATTEND Physician Assistant
DX: Z47.89 Encounter for other orthopedic aftercare (principal); M75.111 Incomplete rotator cuff tear or rupture of right shoulder, not specified as traumatic

== ENCOUNTER 2021-06-01 11:00 | Outpatient (RCR) | payer MEDICARE | END 2021-06-02 | LOC: PT 11:00 | PROVIDERS: ATTEND Physician Assistant | DX: Z47.89 Encounter for other orthopedic aftercare (principal); M75.111 Incomplete rotator cuff tear or rupture of right shoulder, not specified as traumatic | CPT/HCPCS: 97139 ==

== ENCOUNTER 2021-07-01 11:00 | Outpatient (RCR) | payer MEDICARE | END 2021-07-02 | LOC: PT 11:00 | PROVIDERS: ATTEND Physician Assistant | DX: Z47.89 Encounter for other orthopedic aftercare (principal); M75.111 Incomplete rotator cuff tear or rupture of right shoulder, not specified as traumatic ==

== ENCOUNTER 2021-07-03 11:11 | Outpatient (RCR) | payer MEDICARE ==
[2021-08-03] MEDS ORDERED: VOLTAREN ARTHRI20 GM TOP (11:23)
[2021-08-03] MEDS ORDERED: ULTRAM 50MG50 MG PO (11:23)
== END 2021-08-02 ==
LOC: PT 11:11
PROVIDERS: ATTEND Physician Assistant
DX: Z47.89 Encounter for other orthopedic aftercare (principal); M75.111 Incomplete rotator cuff tear or rupture of right shoulder, not specified as traumatic

== ENCOUNTER 2021-08-03 09:38 | Emergency (ER) | payer MEDICARE ==
[~2021-08-03] VITALS: Ht 154.9 cm; Wt 68.0 kg
[2021-08-03] MEDS ORDERED: KETOROLAC TROMETHAMINE 60 MG/2 ML VIAL IM ONE (10:15)
[2021-08-03] MEDS ORDERED: ACETAMINOPHEN 325 MG TAB PO ONE (10:30)
[2021-08-03] MEDS ORDERED: VOLTAREN ARTHRI20 GM TOP (11:23)
[2021-08-03] MEDS ORDERED: ULTRAM 50MG50 MG PO (11:23)
[2021-08-03 11:57] VITALS: BP 140/87
== END 2021-08-03 12:00 | disposition home or self-care (01) ==
LOC: ER 09:55
DX: M25.511 Pain in right shoulder (principal); J44.9 Chronic obstructive pulmonary disease, unspecified; J45.909 Unspecified asthma, uncomplicated; M79.7 Fibromyalgia
CPT/HCPCS: 73030; 99282; J1885

== ENCOUNTER 2021-08-31 10:00 | Outpatient (RCR) | payer MEDICARE ==
[~2021-08-31 10:00] MED LIST changes: +ULTRAM 50MG50 MG PO; +VOLTAREN ARTHRI20 GM TOP
== END 2021-09-01 ==
LOC: PT 10:00
PROVIDERS: ATTEND Specialist
DX: M75.121 Complete rotator cuff tear or rupture of right shoulder, not specified as traumatic (principal)
CPT/HCPCS: 97139

== ENCOUNTER 2021-09-18 10:00 | Outpatient (RCR) | payer MEDICARE | END 2021-10-02 | LOC: PT 10:00 | PROVIDERS: ATTEND Specialist | DX: M75.121 Complete rotator cuff tear or rupture of right shoulder, not specified as traumatic (principal) ==

== ENCOUNTER → 2022-01-19 | Outpatient (CLI) | payer MEDICARE | LOC: MRI 07:33 | PROVIDERS: ATTEND Physician Assistant | DX: M54.16 Radiculopathy, lumbar region (principal); S30.0XXA Contusion of lower back and pelvis, initial encounter | CPT/HCPCS: 72148 ==